=== PATIENT | female | born 1930 | race Caucasian/White ===

== ENCOUNTER 2017-06-06 11:29 | Emergency (ER) | payer OTHER ==
[~2017-06-06] VITALS: Ht 152.4 cm; Wt 54.4 kg
--- NOTE | ~2017-06-06 | CT57 ---
[facility] A Service [facility] RADIOLOGY TEXT RESULTS PATIENT: JANEEN MISHRA LOCATION: SED : [birth year] UNIT #: [id number] AGE: [address]: Shahbaz Valderrama MD SEX: F ORDER DR: [id number] [address] [address] [id number] E MR#: [id number] Acc #: [id number] NAME: JANEEN MISHRA : 1930 SEX: F STUDY DATE/TIME: 06/06/2017 14:36 UNIT: SED ROOM: STUDY DESCRIPTION: CT Chest Wo Cont Attending Physician: Shahbaz Valderrama M.D. Ordering Physician: Shahbaz Valderrama M.D. Primary Care Physician: Terry Dave M.D. MEDICAL IMAGING REPORT This report is preliminary unless electronic signature is present. EXAM CT chest INDICATIONS Cough and congestion. Shortness of air for [address] of the thorax without contrast. Coronal and sagittal reconstructions were obtained. This CT exam was performed with one or more of the following radiation dose reduction techniques: automatic exposure control, adjustment of mA and/or kV according to patient size, and iterative reconstruction. COMPARISON None available. FINDINGS There are patchy airspace opacities in the right lower lobe and in the left lower lobe. There are small bilateral pleural effusions, right greater than left. Mild interstitial thickening in both lungs suggest a component of interstitial edema. There is background emphysema. Patient does have an abnormal pulmonary nodule in the right upper lobe, in the suprahilar region. This pulmonary nodule measures 1.7 x 1.1 x 1.4 cm. There is a second pulmonary nodule in the superior segment right lower lobe measuring up to 0.8 cm. There is prominence of the right hilum which could be due to dilated vessels or lymphadenopathy. Evaluation is limited without IV contrast. No pathologically enlarged mediastinal lymph nodes. The thoracic aorta is normal in size. The main pulmonary artery is within normal limits. No pericardial effusion. The heart is enlarged. [facility] A Service [facility] RADIOLOGY TEXT RESULTS PATIENT: JANEEN MISHRA [id number] [birth year] UNIT #: [id number] AGE: [address]: Shahbaz Valderrama MD SEX: F ORDER DR: Limited images of the upper abdomen were obtained. There are a few small cysts in the liver. The common duct is borderline dilated in the patient status post cholecystectomy. Common duct measures 0.8 cm at the federico hepatis. 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 No acute osseous abnormalities. IMPRESSION 1. Cardiomegaly. Mild interstitial thickening and small bilateral pleural effusions suggest background pulmonary edema. 2. 1.7 cm pulmonary nodule in the right upper lobe. This is concerning for a primary pulmonary neoplasm. Follow-up PET/CT would be recommended to further evaluate. 3. 0.8 cm pulmonary nodule in the superior segment right lower lobe. This is indeterminate and should also be followed. 4. Prominence of the right hilum, however lack of IV contrast makes it challenging to differentiate hilar adenopathy from hilar vessels. Followup is recommended. Dictated by... Bashir Hay M.D. THIS IS AN ELECTRONICALLY VERIFIED REPORT Bashir Hay M.D. at 06/07/2017 5:16 PM SOUMYA/rebekah TD: 06/07/2017 16:06 JOB #: [id number] MEDICAL IMAGING REPORT Page 1 of 1
--- NOTE | ~2017-06-06 | CR72 ---
[facility] A Service of [facility] RADIOLOGY TEXT RESULTS PATIENT: JANEEN MISHRA LOCATION: SED : [birth year] UNIT #: [id number] AGE: [address]: Shahbaz Valderrama MD SEX: F ORDER DR: [id number] [address] [address] [id number] E MR#: [id number] Acc #: [id number] NAME: JANEEN MISHRA : 1930 SEX: F STUDY DATE/TIME: 06/06/2017 13:02 UNIT: SED ROOM: STUDY DESCRIPTION: CR Chest Single View Portable Attending Physician: Shahbaz Valderrama M.D. Ordering Physician: Shahbaz Valderrama M.D. Primary Care Physician: Terry Dave M.D. MEDICAL IMAGING REPORT This report is preliminary unless electronic signature is present. EXAM Single view chest x-ray HISTORY Short of air started this morning. History of COPD and bronchitis. COMMENTS Single frontal portable view of the chest timed 13:02 06/06/2017 reviewed. Comparison is from 11/04/2012. There is mild cardiac silhouette enlargement. The left base is largely obscured, but I am concerned for some left base airspace disease. There is probably underlying chronic lung disease and probably also some superimposed patchy right base airspace disease. Increased markings are noted in the upper lungs peripherally, especially on the left when comparison is made back to the prior study. There is no evidence for congestive failure. Cannot exclude some left pleural fluid. There is no pneumothorax. Likely some vascular ectasia accounting for soft tissue fullness in the right paratracheal region. There is calcification at the aortic knob. Surgical clips right upper quadrant. IMPRESSION 1. Cardiac silhouette enlargement increased from 2012. This obscures the left base. I am however concern for left greater than right lower lung airspace disease. Cannot exclude some left pleural fluid, though there is no congestive failure. I believe there is underlying chronic lung disease with likely some worsening parenchymal scarring. Clinical correlation and followup films recommended to reassess. No pneumothorax. Dictated by... Radha Mijares M.D. [facility] A Service of [facility] RADIOLOGY TEXT RESULTS PATIENT: JANEEN MISHRA LOCATION: [facility] : [birth year] UNIT #: [id number] AGE: [address]: Shahbaz Valderrama MD SEX: F ORDER DR: THIS IS AN ELECTRONICALLY VERIFIED REPORT Radha Mijares M.D. at 06/07/2017 3:56 PM SAC/psc TD: 06/07/2017 15:46 JOB #: [id number] MEDICAL IMAGING REPORT Page 1 of 1
[~2017-06-06 11:29] MED LIST: ADVAIR 2501 DISK W/D PO; ARICEPT PO; BENZONATATE PO; DOXYCYCLINE HY100 M1 PO; IMODIUM2 MG PO; MACROBID100 MG PO; METFORMIN PO; NORVASC PO; PREDNISONE PO; SINEMET-25/1001 TAB PO; ZOFRAN ODT4 MG PO; ZOLOFT PO; ZYLOPRIM PO
[2017-06-06] MEDS ORDERED: FLOVENT7.9 GM 44 INH (11:42)
[2017-06-06] MEDS ORDERED: ASPIRIN81 MG PO (11:43)
[2017-06-06] MEDS ORDERED: COMBIVENT U/D3 M2 INH (11:43)
[2017-06-06] MEDS ORDERED: LIPITOR PO (11:44)
[2017-06-06] MEDS ORDERED: SYMBICORT80 INH (11:44)
[2017-06-06 12:30] LABS: BASOPHIL% 0.7 % (0-2.5); EOSINOPHIL# 0.1 X10e3 (0-0.7); EOSINOPHIL% 1.7 % (0.0-7.0); HEMATOCRIT 27.8 % (35.0-45.0); HEMOGLOBIN 9.4 gm/dL (12.0-16.0); LYMPHOCYTE# 0.9 X10e3 (1.0-3.5); LYMPHOCYTE% 18.1 % (17.0-45.0); MEAN CELL VOLUME 86.9 FL (83-96); MEAN CORPUSCULAR HEMOGLOBIN 29.5 PG (28-34); MEAN CORPUSCULAR HGB CONC 33.9 g/dL (30-36); MEAN PLATELET VOLUME 7.7 FL (6.5-11.5); MONOCYTE# 0.4 X10e3 (0-1.0); MONOCYTE% 7.5 % (3.0-12.0); NEUTROPHIL# 3.7 X10e3 (1.5-7.1); PLATELET COUNT 274 X10e3 (140-420); RED CELL DISTRIBUTION WIDTH 14.4 % (11.0-15.5); WHITE BLOOD COUNT 5.1 X10e3 (4.0-10.5)
[2017-06-06 12:37] LABS: DIFF IND NO
[2017-06-06 12:41] LABS: INR 1.1; PROTHROMBIN TIME (PATIENT) 12.6 SECONDS (9.5-12.4)
[2017-06-06 12:46] LABS: POC - TROPONIN <0.05 ng/mL (<=0.05)
[2017-06-06 12:48] LABS: PARTIAL THROMBOPLASTIN TIME 26.9 SECONDS (25.6-38.1)
[2017-06-06 12:50] LABS: ALBUMIN SERUM 3.1 g/dL (3.5-5.0); BILIRUBIN, DIRECT 0.1 mg/dL (0.0-0.2); BILIRUBIN,INDIRECT 0.9 mg/dL (0.0-0.9); CALCIUM SERUM 8.8 mg/dL (8.4-10.2); GLOM FILT RATE Estimated 50.6 mL/min (>60); POTASSIUM 3.9 mmol/L (3.5-5.1); PROTEIN TOTAL SERUM 6.7 g/dL (6.0-8.3)
== END 2017-06-06 18:32 ==
LOC: CED 11:29 → SED 11:29
PROVIDERS: Emergency Medicine
DX: I11.0 Hypertensive heart disease with heart failure (principal); I50.9 Heart failure, unspecified; C34.91 Malignant neoplasm of unspecified part of right bronchus or lung; J44.9 Chronic obstructive pulmonary disease, unspecified; E78.5 Hyperlipidemia, unspecified; G20 Parkinson's disease; Z90.49 Acquired absence of other specified parts of digestive tract; Z90.710 Acquired absence of both cervix and uterus; Z79.899 Other long term (current) drug therapy; Z79.82 Long term (current) use of aspirin; Z88.1 Allergy status to other antibiotic agents
CPT/HCPCS: 36415; 71010; 71250; 80048; 80076; 82553; 83605; 83880; 84484; 85025; 85610; 85730; 93005; 94640; 96360; 99285; J1940